=== PATIENT | female | born 1980 | race Caucasian/White ===

== ENCOUNTER 2017-04-08 15:41 | Emergency (ER) | payer BC ==
[2017-04-08 17:02] VITALS: BP 118/74
--- NOTE | 2017-04-08 17:21 | UC ---
Skin Complaint HPI - HPI Summary HPI Summary: Pt c/o of right upper arm redness and tenderness X 2-3 days. Pt denies injury or trauma. Pt has smal wound that has not healed in 1 month that she reports swells and then drains intermittently over the las t2 months. Pt now reports left right upper arm medial aspect is mildly swollen, tender and has very tender "lump" at medial epicondyle - History of Current Complaint Chief Complaint: UCSkin Time Seen by Provider: 04/08/17 17:10 Stated Complaint: SKIN COMPLAINT Hx Obtained From: Patient Hx Last Menstrual Period: 01/26/15 ?: No - pt is on Depo, Onset/Duration: Gradual Onset, Lasting Days, Still Present, Worse Since - onset Skin Exposure Onset/Duration: Hours Ago, Weeks Ago Onset Severity: Mild Current Severity: Moderate Location: Discrete - right upper arm Character: Swelling, Redness, Raised, Painful Aggravating Factor(s): Touch Alleviating Factor(s): Nothing Associated Signs & Symptoms: Positive: Drainage, Tenderness, Red Streaks - Allergy/Home Medications Allergies/Adverse Reactions: Allergies Allergy/AdvReac Type Severity Reaction Status Date / Time No Known Allergies Allergy Verified 04/08/17 17:02 Review of Systems Constitutional: Negative Skin: Other - erythema Eyes: Negative ENT: Negative Respiratory: Negative Cardiovascular: Negative Gastrointestinal: Negative Motor: Negative Neurovascular: Negative Musculoskeletal: Myalgia Neurological: Negative Psychological: Negative Is Patient Immunocompromised?: No All Other Systems Reviewed And Are Negative: Yes PMH/Surg Hx/FS Hx/Imm Hx Previously Healthy: Yes - Surgical History Surgical History: Yes Surgery Procedure, Year, and Place: 2009 and 2010 Left Lumpectomies, [place] - Family History Known Family History: Positive: Cardiac Disease - Social History Occupation: Employed Full-time Lives: With Family Alcohol Use: Rare Substance Use Type: None Smoking Status (MU): Heavy Every Day Tobacco Smoker Type: Cigarettes Amount Used/How Often: 20 cig/day Length of Time of Smoking/Using Tobacco: 15 years Have You Smoked in the Last Year: Yes Household Exposure Type: Cigarettes Physical Exam Triage Information Reviewed: Yes Appearance: Well-Appearing Vital Signs: Initial Vital Signs Temp 99.3 F 04/08/17 16:57 Pulse 75 04/08/17 16:57 Resp 16 04/08/17 16:57 BP 118/74 04/08/17 16:57 Pulse Ox 98 04/08/17 16:57 Vital Signs Reviewed: Yes Eye Exam: Normal ENT Exam: Normal Dental Exam: Normal Neck exam: Normal Respiratory Exam: Normal Cardiovascular Exam: Normal Musculoskeletal: Positive: Other: - right upper arm right medial epicondyle marble sized tender lump, with reddened area measuring 10 cm length X 4cm wide, area is warm and tender, erythema travels from wound to medial epicondyle to mid upper arm. right upper arm measured 23.5 cm left 22.5 cm Course/Dx - Course Course Of Treatment: I discussed with the pt my concern for possible DVt or worsening infection. Pt verbalized understanding - Differential Diagnoses - Skin Complaint Differential Diagnoses: Abscess, Cellulitis - Diagnoses Provider Diagnoses: abscess. cellulitis. DVT? Discharge - Discharge Plan Condition: Stable Disposition: HOME Prescriptions: Sulfamethox/Trimethoprim DS* [Bactrim DS 800/160 TAB*] 1 tab PO Q12H #20 tab Patient Education Materials: Cellulitis (ED), Abscess (ED) Referrals: Maty Tripp MD [Primary Care Provider] - If Needed Additional Instructions: Please follow up with your PCP as needed or return to clinic. Please note that if your symptoms do not improve within the next 24 hours please seek care at the closest Emergency Department
== END 2017-04-08 17:36 | disposition home or self-care (01) ==
LOC: UCCORT 15:41
DX: L02.413 Cutaneous abscess of right upper limb (principal); L03.113 Cellulitis of right upper limb; F17.210 Nicotine dependence, cigarettes, uncomplicated
CPT/HCPCS: 99212; G0463